=== PATIENT | female | born 1960 | race Hispanic/Latino ===

== ENCOUNTER 2018-09-20 18:21 | Emergency (ER) | payer OTHER ==
[2018-09-20 18:25] VITALS: BMI 21.7
[2018-09-20 18:34] VITALS: RESP 18; TEMP 98.1
[2018-09-20 18:54] VITALS: PULSE 87
--- NOTE | 2018-09-20 19:23 | ED PDOC ---
Arrival/HPI - General Chief Complaint: Psychiatric Evaluation Time Seen by Provider: 09/20/18 18:57 Historian: Patient - History of Present Illness Narrative History of Present Illness (Text): 09/20/18 19:23 58 y/o female with PMH of CAD presents to the ED with family c/o worsening anxiety and stress x 1 week. She states the stress has been causing inability to sleep. Asking for sleep aide and psychiatric evaluation but is not interested in admission to the hospital. Pt does not have a psychiatrist. States she is prescribed an unknown medication for anxiety but it is not working. Denies any physical complaints. Denies SI, HI, hallucinations, substance use, fever, chills, abdominal pain, chest pain, N/V/D, urinary symptoms, SOB, headache, neck pain, vision changes, dizziness, or any other associated complaints. Past Medical History - Provider Review Nursing Documentation Reviewed: Yes - Psychiatric Hx Anxiety: Yes Hx Depression: Yes Hx Substance Use: No - Surgical History Other/Comment: Open heart sx 1996 Family/Social History - Physician Review Nursing Documentation Reviewed: Yes Family/Social History: No Known Family HX Smoking Status: Never Smoked Hx Alcohol Use: Yes Frequency of alcohol use: Socially Hx Substance Use: No Allergies/Home Meds Allergies/Adverse Reactions: Allergies No Known Allergies Allergy (Verified 09/20/18 18:25) Review of Systems - Review of Systems Constitutional: Normal. absent: Fatigue, Fevers Eyes: Normal. absent: Vision Changes ENT: Normal. absent: Sore Throat, Sinus Congestion Respiratory: Normal. absent: SOB, Cough Cardiovascular: Normal. absent: Chest Pain, Palpitations, Syncope Gastrointestinal: Normal. absent: Abdominal Pain, Nausea, Vomiting Genitourinary Female: Normal. absent: Dysuria, Frequency Musculoskeletal: Normal. absent: Back Pain, Neck Pain Skin: Normal. absent: Rash Neurological: Normal. absent: Headache, Dizziness Endocrine: Normal Hemo/Lymphatic: Normal Psychiatric: Anxiety, Depression Physical Exam - Physical Exam Physical Exam Limitations: Uncooperative Vital Signs Reviewed: Yes Vital Signs Temp Pulse Resp BP Pulse Ox 09/20/18 18:53 87 18 148/97 H 97 09/20/18 18:25 98.1 F 107 H 18 154/111 H 97 Temperature: Afebrile Blood Pressure: Hypertensive Pulse: Tachycardic Respiratory Rate: Normal Appearance: Positive for: Well-Appearing, Non-Toxic, Comfortable Pain Distress: None Mental Status: Positive for: Alert and Oriented X 3 Medical Decision Making ED Course and Treatment: 09/20/18 19:20 Patient unwilling to give up personal property during psychiatric evaluation. Advised that benzodiazepines or sleep aides will not be prescribed for outpatient use from ED provider. Offered melatonin prescription, patient refused. Pt asking to leave AMA prior to physical examination or evaluation of symptoms. Pt is alert, oriented, capable of making decisions. Adamantly denies SI, HI, or psychosis. Ambulating with steady gait with no physical complaints. Patient refusing physical exam. The patient is choosing to leave against medical advice. I have personally explained to the patient that choosing to do so may result in permanent bodily harm, disability, or . I have discussed at great length that without further evaluation and monitoring there may be unforeseen circumstances and/or deterioration causing permanent bodily harm or as a result of their choice. The patient is alert, oriented, and shows the mental capacity to make clear decisions regarding the patients health care at this time. The patient continues to wish to leave against medical advice. In light of the patients decision to leave against medical advice, follow-up has been arranged and the patient is aware of the importance to following up as instructed. The patient has been advised that they should return to the emergency room immediately if they change their mind at any time, or if their condition begins to change or worsen in any way. Disposition/Present on Arrival - Present on Arrival Any Indicators Present on Arrival: No History of DVT/PE: No History of Uncontrolled Diabetes: No Urinary Catheter: No History of Decub. Ulcer: No History Surgical Site Infection Following: None - Disposition Have Diagnosis and Disposition been Completed?: Yes Diagnosis: Left against medical advice, Insomnia Disposition: AGAINST MEDICAL ADVICE Disposition Time: 19:20 Patient Problems: Current Active Problems Problem Status Onset Insomnia Acute Left against medical advice Acute Condition: GUARDED
[2018-09-20 19:46] VITALS: BP 145/78; O2SAT 100
== END 2018-09-20 19:17 | disposition left against medical advice (07) ==
LOC: ED 18:21
DX: G47.00 Insomnia, unspecified (principal); F41.9 Anxiety disorder, unspecified; F32.9 Major depressive disorder, single episode, unspecified